=== PATIENT | female | born 1950 | race Hispanic/Latino ===

== ENCOUNTER 2018-07-25 11:13 | Emergency (ER) | payer MEDICARE, MEDICAID ==
[2018-07-25 11:14] VITALS: BMI 25.7
[2018-07-25 11:39] VITALS: RESP 18; TEMP 98.4
--- NOTE | 2018-07-25 12:13 | ED PDOC ---
Arrival/HPI - General Chief Complaint: Finger,Hand,&Wrist Historian: Patient - History of Present Illness Narrative History of Present Illness (Text): 07/25/18 12:10 68yo female with no significant pmhx who present with complaint of b/l wrist pain that radiates to her elbow. States pain has been ongoing on the right arm and became worse recently. States the left arm pain started recently. 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 Denies trauma, focal weakness, paresthesia, swelling, redness, any other complaint. Past Medical History - Provider Review Nursing Documentation Reviewed: Yes - Infectious Disease Hx of Infectious Diseases: None - Reproductive Menopause: Yes - Endocrine/Metabolic Hx Diabetes Mellitus Type 2: Yes (early stages) - Musculoskeletal/Rheumatological Hx Back Pain: Yes (3 weeks) - Psychiatric Hx Substance Use: No - Surgical History Hx Hysterectomy: Yes - Anesthesia Hx Anesthesia Reactions: Yes (Anaphylactic) Family/Social History - Physician Review Nursing Documentation Reviewed: Yes Family/Social History: Unknown Family HX Smoking Status: Never Smoked Hx Alcohol Use: No Hx Substance Use: No Allergies/Home Meds Allergies/Adverse Reactions: Allergies acetaminophen [From Tylenol] Adverse Reaction (Verified 07/25/18 11:39) ANAPHYLAXIS aspirin Adverse Reaction (Verified 07/25/18 11:39) ANAPHYLAXIS ibuprofen [From Advil] Adverse Reaction (Verified 07/25/18 11:39) ANAPHYLAXIS Penicillins Adverse Reaction (Verified 07/25/18 11:39) ANAPHYLAXIS Review of Systems - Physician Review All systems were reviewed & negative as marked: Yes - Review of Systems Constitutional: Normal Eyes: Normal ENT: Normal Respiratory: Normal Cardiovascular: Normal Gastrointestinal: Normal Genitourinary Female: Normal Musculoskeletal: Arthralgias (Right wrist) Skin: Normal Neurological: Normal Endocrine: Normal Hemo/Lymphatic: Normal Psychiatric: Normal Physical Exam Vital Signs Reviewed: Yes Vital Signs Temp Pulse Resp BP Pulse Ox 07/25/18 11:37 98.4 F 89 18 111/89 99 Temperature: Afebrile Blood Pressure: Normal Pulse: Regular Respiratory Rate: Normal Appearance: Positive for: Well-Appearing, Non-Toxic, Comfortable Pain Distress: None Mental Status: Positive for: Alert and Oriented X 3 - Systems Exam Head: Present: Atraumatic, Normocephalic Pupils: Present: PERRL Extroacular Muscles: Present: EOMI Conjunctiva: Present: Normal Mouth: Present: Moist Mucous Membranes Neck: Present: Normal Range of Motion Respiratory/Chest: Present: Clear to Auscultation, Good Air Exchange. No: Respiratory Distress, Accessory Muscle Use Cardiovascular: Present: Regular Rate and Rhythm, Normal S1, S2. No: Murmurs Abdomen: No: Tenderness, Distention, Peritoneal Signs Back: Present: Normal Inspection Upper Extremity: Present: Normal Inspection. No: Cyanosis, Edema Lower Extremity: Present: NORMAL PULSES, Normal ROM (With pain on flexion), Tenderness (Right wrist), Neurovascularly Intact, Other (+Phanel and tinel test). No: Edema, Swelling, Deformity, Temperature Abnormalties Neurological: Present: GCS=15, CN II-XII Intact, Speech Normal Skin: Present: Warm, Dry, Normal Color. No: Rashes Psychiatric: Present: Alert, Oriented x 3, Normal Insight, Normal Concentration Medical Decision Making - RAD Interpretation Radiology Orders: 07/25/18 11:36 WRIST, LEFT 3 VIEWS [RAD] Stat WRIST, RIGHT 3 VIEWS [RAD] Stat - Medication Orders Current Medication Orders: Dexamethasone (Decadron Inj) 10 mg IVP STAT STA Stop: 07/25/18 12:08 Disposition/Present on Arrival - Present on Arrival Any Indicators Present on Arrival: No History of DVT/PE: No History of Uncontrolled Diabetes: No Urinary Catheter: No History of Decub. Ulcer: No History Surgical Site Infection Following: None - Disposition Have Diagnosis and Disposition been Completed?: Yes Diagnosis: Bilateral wrist pain Disposition: HOME/ ROUTINE Disposition Time: 13:05 Patient Plan: Discharge Condition: STABLE Discharge Instructions (ExitCare): Hand Pain Additional Instructions: Use your wrist braces as directed and follow up with orthopedist Return to ED for worsening symptoms Prescriptions: Lidocaine 5% [Lidoderm] 1 ea TD DAILY #10 patch Referrals: Mac Drummond MD [Staff Provider] - Follow up with primary Forms: B-152 (Macedonian)
--- NOTE | 2018-07-25 12:53 | RAD ---
Date of service: 07/25/2018 PROCEDURE: Right Wrist Radiographs. HISTORY: wrist pain COMPARISON: None. FINDINGS: BONES: Bone alignment is normal. There is no acute displaced fracture or bone destruction. There is diffuse bone demineralization. JOINTS: There is triangular fibrocartilage calcification degenerative in etiology. No dislocation. SOFT TISSUES: Normal. OTHER FINDINGS: None. IMPRESSION: No acute displaced fracture or dislocation.
--- NOTE | 2018-07-25 12:55 | RAD ---
Date of service: 07/25/2018 PROCEDURE: Left Wrist Radiographs. HISTORY: wrist pain COMPARISON: None. FINDINGS: BONES: There is diffuse bone demineralization. There is no acute displaced fracture or bone destruction. Bone alignment is normal. 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 Triangular fibrocartilage calcification degenerative in etiology. No dislocation. SOFT TISSUES: Normal. OTHER FINDINGS: None. IMPRESSION: No acute displaced fracture or dislocation.
[2018-07-25 13:04] VITALS: BP 128/74; PULSE 77; O2SAT 96
[2018-07-25] MEDS ORDERED: Lidocaine 5% Patch TD STA (13:04)
== END 2018-07-25 13:27 | disposition home or self-care (01) ==
LOC: ED 11:13
DX: M25.532 Pain in left wrist (principal); M25.531 Pain in right wrist
CPT/HCPCS: 73110; 96372; 99283; J1100